=== PATIENT | female | born 1990 | race Caucasian/White ===

== ENCOUNTER 2020-09-13 18:13 | Emergency (ER) | payer MEDICAID ==
[~2020-09-13] VITALS: Ht 165.1 cm; Wt 72.8 kg
[~2020-09-13 18:13] MED LIST: IBUP-1222 PO; NONE PER PT
[2020-09-13 18:20] VITALS: BP 108/51
--- NOTE | 2020-09-13 19:00 | NUR ---
Pt reports "black and white coming out last night." Showed video of disolving stitch to this RN from this AM. Approx 1cm wound open hole with minimal drainage. Pt states pain is managable at this time.
--- NOTE | 2020-09-13 19:12 | NUR ---
Report to MAEVE Alonso, to assume full care.
== END 2020-09-13 19:54 | disposition home or self-care (01) ==
LOC: ED 19:25
DX: T81.30XA Disruption of wound, unspecified, initial encounter (principal)
CPT/HCPCS: 99281